=== PATIENT | female | born 1985 | race Caucasian/White ===

== ENCOUNTER 2019-04-14 08:04 | Observation (INO) | payer OTHER ==
[~2019-04-14 08:04] MED LIST: DESFLURANE 15 MIN
[2019-04-14 10:00] LABS: ADD MAN DIFF? NO
[2019-04-14 10:02] LABS: WHITE BLOOD COUNT 9.5 10^3/ul (4.8-10.8)
[2019-04-14 10:03] LABS: BASOPHIL # 0.1 10^3/ul (0.0-0.1); BASOPHILS % 0.5 % (0.0-2.0); EOSINOPHILS # 0.2 10^3/ul (0.0-0.5); EOSINOPHILS % 2.2 % (0.0-7.0); HEMATOCRIT 38.4 % (37.0-47.0); HEMOGLOBIN 12.1 g/dl (12.0-16.0); LYMPHOCYTES # 3.3 10^3/ul (0.8-2.9); LYMPHOCYTES % 34.8 % (15.0-51.0); MEAN CORPUSCULAR HGB CONC 31.5 g/dl (32.0-37.0); MEAN CORPUSCULAR VOLUME 82.6 fl (82.0-101.0); MEAN PLATELET VOLUME 10.8 fl (7.4-10.4); MONOCYTE # 0.5 10^3/ul (0.3-0.9); MONOCYTES % 5.2 % (0.0-11.0); NEUTROPHIL # 5.4 10^3/ul (1.6-7.5); NEUTROPHILS % 56.9 % (39.0-77.0); PLATELET COUNT 258 10^3/UL (140-415); RED BLOOD COUNT 4.65 10^6/ul (4.20-5.40); RED CELL DISTRIBUTION WIDTH 13.5 % (11.5-14.5)
[2019-04-14 10:22] LABS: ALANINE AMINOTRANSFERASE 55 IU/L (13-69); ALBUMIN 4.5 g/dl (3.3-4.9); ALBUMIN/GLOBULIN RATIO 1.25; ALKALINE PHOSPHATASE 66 IU/L (42-121); ANION GAP 11 (5-13); ASPARTATE AMINO TRANSFERASE 53 IU/L (15-46); BILIRUBIN,INDIRECT 0.8 mg/dl (0-1.1); BILIRUBIN,TOTAL 0.8 mg/dl (0.2-1.3); BLOOD UREA NITROGEN 10 mg/dl (7-20); CALCIUM 9.1 mg/dl (8.4-10.2); CARBON DIOXIDE 25 mmol/L (21-31); CHLORIDE 106 mmol/L (97-110); CREATININE 0.66 mg/dl (0.44-1.00); Estimated GFR > 60 mL/min (>60); GLUCOSE 128 mg/dl (70-220); POTASSIUM 4.6 mmol/L (3.5-5.1); PROTIME 12.3 Sec (11.9-14.9); SODIUM 142 mmol/L (135-144); TOTAL PROTEIN 8.1 g/dl (6.1-8.1)
[2019-04-14 10:23] LABS: PARTIAL THROMBOPLASTIN TIME 25.1 Sec (23.0-35.0)
[2019-04-14] MEDS ORDERED: LIDOCAINE 100 MG SYRINGE (13:05)
[2019-04-14] MEDS ORDERED: PROPOFOL 20 ML (13:05)
[2019-04-14] MEDS ORDERED: ROCURONIUM 50 MG INJ (13:05)
[2019-04-14] MEDS ORDERED: DEXAMETHASONE 4 MG/ML 5 ML INJ (13:05)
[2019-04-14] MEDS ORDERED: CEFAZOLIN 1 GM INJ (13:05)
[2019-04-14] MEDS ORDERED: MIDAZOLAM 1 MG/ML 2 ML INJ (13:05)
[2019-04-14] MEDS ORDERED: FENTAnyl 50 MCG/ML VIAL ×2 (13:05→13:49)
[2019-04-14] MEDS ORDERED: ONDANSETRON 4 MG INJ (13:05)
[2019-04-14] MEDS ORDERED: SUGAMMADEX SODIUM 200 MG/2 ML VIAL IV (13:06)
[2019-04-14] MEDS ORDERED: ISOSULFAN BLUE 1% 5 ML INJ SC (13:38)
[2019-04-14] MEDS: ISOSULFAN BLUE 1% 5 ML INJ SC (14:00)
[2019-04-14] MEDS ORDERED: HYDROmorphONE 2 MG/ML SYG (14:57)
[2019-04-14] MEDS ORDERED: HYDROmorphONE 1 MG/ML SYG SC (16:00)
[2019-04-14] MEDS ORDERED: ACETAMINOPHEN 325 MG TAB PO (16:00)
[2019-04-14] MEDS ORDERED: DIPHENHYDRAMINE 50 MG INJ IV (16:00)
[2019-04-14] MEDS: FENTAnyl 50 MCG/ML VIAL IV (16:19)
[2019-04-14] MEDS ORDERED: LABETALOL HCL 20MG INJ IV (16:30)
[2019-04-14] MEDS ORDERED: HYDROmorphONE 1 MG/5 ML IV SYRINGE IV ×2 (16:30)
[2019-04-14] MEDS ORDERED: MEPERIDINE 25 MG INJ IV (16:30)
[2019-04-14] MEDS ORDERED: hydrALAzine 20 MG INJ IV (16:30)
[2019-04-14] MEDS ORDERED: METOCLOPRAMIDE 10 MG INJ IV (16:30)
[2019-04-14] MEDS ORDERED: FENTAnyl 50 MCG/ML VIAL IV (16:30)
[2019-04-14] MEDS ORDERED: ONDANSETRON 4 MG INJ IV (16:30)
[2019-04-14] MEDS: D5W-0.45 NACL + KCL 20 MEQ 1,000 ML IV (18:23)
[2019-04-14] MEDS: ONDANSETRON 4 MG INJ IV (18:23)
[2019-04-14] MEDS: CEFAZOLIN 2 GM/50 ML (PMX) 50 ML IVPB ×2 (19:00→21:58)
[2019-04-14] MEDS: HYDROCODONE/APAP (5/325) TAB PO (19:33)
[2019-04-15] MEDS: D5W-0.45 NACL + KCL 20 MEQ 1,000 ML IV (01:42)
== END 2019-04-15 11:10 | disposition home or self-care (01) ==
LOC: SDS 08:04 → REC 15:48 → MS1 17:45
DX: C50.912 Malignant neoplasm of unspecified site of left female breast (principal); Z17.0 Estrogen receptor positive status [ER+]
CPT/HCPCS: 19301; 80053; 85025; 85610; 85730; 88307; 88309; 88331; 99217